=== PATIENT | male | born 1980 | race Caucasian/White ===

== ENCOUNTER 2016-05-06 22:44 | Emergency (ER) | payer OTHER ==
[~2016-05-06] VITALS: Ht 175.3 cm; Wt 95.4 kg
[~2016-05-06 22:44] MED LIST: HYCODAN SYRUP480 ML PO; MOTRIN800 MG PO; NOHOMEMEDS; TRAMADOL
[2016-05-07 01:28] VITALS: BP 126/84
== END 2016-05-07 01:32 | disposition home or self-care (01) ==
LOC: EME → EDBD 22:44 → EME 05-07 01:32
DX: F10.129 Alcohol abuse with intoxication, unspecified (principal); R11.2 Nausea with vomiting, unspecified; Z87.442 Personal history of urinary calculi
CPT/HCPCS: 99281; 99284; J2405; J7030

== ENCOUNTER 2016-10-07 21:09 | Emergency (ER) | payer OTHER ==
[~2016-10-07] VITALS: Ht 175.3 cm; Wt 90.0 kg
[2016-10-07] MEDS ORDERED: OXYCODONE-APAP1 EACH PO (21:50)
[2016-10-07] MEDS ORDERED: TIZANIDINE HCL4 MG PO (21:50)
[2016-10-07 22:42] VITALS: BP 136/86
== END 2016-10-07 22:46 | disposition home or self-care (01) ==
LOC: EME 21:09 → RME 21:09
DX: S20.219A Contusion of unspecified front wall of thorax, initial encounter (principal); W22.09XA Striking against other stationary object, initial encounter; Y93.64 Activity, baseball; Y92.320 Baseball field as the place of occurrence of the external cause; Z87.442 Personal history of urinary calculi
CPT/HCPCS: 71020; 99281; 99284; J1885

== ENCOUNTER 2017-05-16 15:45 | Emergency (ER) | payer OTHER ==
[~2017-05-16] VITALS: Ht 175.3 cm; Wt 95.4 kg
[~2017-05-16 15:45] MED LIST changes: +OXYCODONE-APAP1 EACH PO; +TIZANIDINE HCL4 MG PO
[2017-05-16 16:25] LABS: HEMATOCRIT 48.3 % (38.0-50.0); MCH 29.1 PG (29.0-34.0); MCHC 35.2 G/DL (30.0-36.0); MCV 82.6 FL (86-99); PLATELET COUNT 302 K/uL (156-360); RBC DIS.WIDTH-CV 12.5 % (11.8-14.6); RBC DIS.WIDTH-SD 37.2 % (39-53); RED BLOOD COUNT 5.85 M/uL (4.00-5.50); WHITE BLOOD COUNT 12.2 K/uL (4.1-10.2)
[2017-05-16 16:33] LABS: APPEARANCE CLOUDY ((CLEAR)); BILIRUBIN NEGATIVE; BLOOD LARGE; COLOR YELLOW ((YELLOW)); GLUCOSE (STRIP) NEGATIVE; KETONES NEGATIVE; LEUKOCYTES NEGATIVE; NITRITE NEGATIVE; PROTEIN (STRIP) 100; UROBILINOGEN 0.2 MG/DL (0.2-1.0)
[2017-05-16 16:36] LABS: CHLORIDE 102 mEq/L (99-109); POTASSIUM 4.1 mEq/L (3.7-5.4); SODIUM 141 mEq/L (136-147)
[2017-05-16 16:38] LABS: GLUCOSE 142 mg/dL (70-99)
[2017-05-16 16:42] LABS: CREATININE 1.2 mg/dL (0.6-1.3); GFR ESTIMATE (CALCULATED) > 59 mL/min/ (58.99-99999)
[2017-05-16 16:43] LABS: UREA NITROGEN (BUN) 12 mg/dL (9-23)
[2017-05-16 17:02] LABS: EPITHELIAL CELLS RARE /HPF; RED BLOOD CELLS TNTC /HPF (0-5); WHITE BLOOD CELLS NONE SEEN /HPF (0-5)
[2017-05-16 17:03] LABS: BACTERIA RARE /HPF; CALCIUM OXALATE CRYSTALS FEW /HPF; MUCUS NONE SEEN /LPF; UCUL ADDED? YES
[2017-05-16] MEDS ORDERED: DAILY VALUE1 EACH PO (19:27)
[2017-05-16] MEDS ORDERED: FLOMAX0.4 MG PO (21:28)
[2017-05-16] MEDS ORDERED: ZOFRAN ODT8 MG PO (21:28)
[2017-05-16] MEDS ORDERED: INDOCIN50 MG PO (21:28)
[2017-05-16 22:00] VITALS: BP 108/64
== END 2017-05-16 22:01 | disposition home or self-care (01) ==
LOC: EME 15:45
DX: N13.2 Hydronephrosis with renal and ureteral calculous obstruction (principal); G89.29 Other chronic pain; M54.9 Dorsalgia, unspecified; Z79.891 Long term (current) use of opiate analgesic
CPT/HCPCS: 74176; 80048; 81003; 85027; 87086; 99281; 99285; J1200; J1885; J2765; J7040; J7050

== ENCOUNTER 2017-05-21 12:15 | Day surgery (SDC) | payer OTHER ==
[~2017-05-21] VITALS: Ht 175.3 cm; Wt 95.9 kg
[~2017-05-21 12:15] MED LIST changes: +DAILY VALUE1 EACH PO; +FLOMAX0.4 MG PO; +INDOCIN50 MG PO; +ZOFRAN ODT8 MG PO
[2017-05-21 12:38] VITALS: BP 143/90
[2017-05-21 16:37] VITALS: BP 138/92
[2017-05-21 17:07] VITALS: BP 146/81
== END 2017-05-21 17:10 | disposition home or self-care (01) ==
LOC: SDC 12:15
DX: N20.1 Calculus of ureter (principal); N20.2 Calculus of kidney with calculus of ureter; Z82.49 Family history of ischemic heart disease and other diseases of the circulatory system; Z83.3 Family history of diabetes mellitus; Z80.1 Family history of malignant neoplasm of trachea, bronchus and lung
CPT/HCPCS: 74018; C2625; J0131; J0690; J1170; J2250; J2405